=== PATIENT | female | born 1960 | race Two or more races ===

== ENCOUNTER → 2017-11-06 | Outpatient (CLI) | payer OTHER | END | disposition home or self-care (01) | LOC: PPH VACUNA 12:57 → PPHC 12:57 | DX: Z23 Encounter for immunization (principal) ==

== ENCOUNTER 2021-01-24 09:47 | Outpatient (CLI) | payer OTHER | END 2021-01-24 09:58 | disposition home or self-care (01) | LOC: RAD 09:47 | DX: S99.922A Unspecified injury of left foot, initial encounter (principal); M79.672 Pain in left foot; M79.671 Pain in right foot ==

== ENCOUNTER 2021-01-31 07:44 | Outpatient (CLI) | payer OTHER | END 2021-01-31 07:55 | disposition home or self-care (01) | LOC: TOM 07:44 | PROVIDERS: ATTEND Internal Medicine Gastroenterology | DX: K56.600 Partial intestinal obstruction, unspecified as to cause (principal); Z86.010 Personal history of colon polyps ==

== ENCOUNTER 2021-02-10 08:16 | Outpatient (CLI) | payer OTHER | END 2021-02-10 08:29 | disposition home or self-care (01) | LOC: MRI 08:16 | DX: S86.012A Strain of left Achilles tendon, initial encounter (principal); S86.212A Strain of muscle(s) and tendon(s) of anterior muscle group at lower leg level, left leg, initial encounter | CPT/HCPCS: 73721 ==

== ENCOUNTER 2023-06-20 10:21 | Outpatient (CLI) | payer OTHER | END 2023-06-20 10:24 | disposition home or self-care (01) | LOC: SONOGRAMA 10:21 | DX: M25.512 Pain in left shoulder (principal) ==

== ENCOUNTER 2023-07-25 12:27 | Outpatient (CLI) | payer OTHER | END 2023-07-25 12:31 | disposition home or self-care (01) | LOC: NUCLEAR 12:27 | DX: M81.0 Age-related osteoporosis without current pathological fracture (principal) ==